=== PATIENT | female | born 1975 | race Two or more races ===

== ENCOUNTER 2020-08-08 13:10 | Emergency (ER) | payer MEDICAID ==
[~2020-08-08] VITALS: Ht 170.2 cm; Wt 81.0 kg
[2020-08-08 15:24] VITALS: BP 167/71
== END 2020-08-08 15:25 | disposition home or self-care (01) ==
LOC: ER 14:10
DX: R10.12 Left upper quadrant pain (principal); R07.81 Pleurodynia; Z90.49 Acquired absence of other specified parts of digestive tract; Z98.890 Other specified postprocedural states
CPT/HCPCS: 71046; 99283